=== PATIENT | female | born 1970 | race Caucasian/White ===

== ENCOUNTER 2020-05-19 18:23 | Emergency (ER) | payer MEDICAID ==
[~2020-05-19] VITALS: Ht 172.7 cm; Wt 70.0 kg
[2020-05-19 18:37] VITALS: BP 149/72
--- NOTE | 2020-05-19 18:40 | NUR ---
Pt placed in triage tent in ambulance bay for evaluation.
[2020-05-19] MEDS ORDERED: AZIT-63 PO (19:10)
== END 2020-05-19 19:22 | disposition home or self-care (01) ==
LOC: ER 18:24
DX: J06.9 Acute upper respiratory infection, unspecified (principal); Z79.2 Long term (current) use of antibiotics
CPT/HCPCS: 71045; 93005; 99283